=== PATIENT | male | born 1950 | race Hispanic/Latino ===

== ENCOUNTER 2024-05-15 11:58 | Emergency (ER) | payer MEDICARE, SELFPAY ==
[2024-05-15 14:08] LABS: #Basophils 0.04 10x3/uL (0.0-0.2); %Basophils 0.7 % (0.0-1.0); %Eosinophils 6.4 % (0.0-10.0); %Lymphocytes 37.3 % (21.0-51.0); %Monocytes 9.2 % (0.0-10.0); %Neutrophils 45.7 % (42.0-75.0); Hematocrit 43.6 % (42.0-52.0); Hemoglobin 14.2 g/dL (14.0-18.0); Mean Corpuscular HGB CONC 32.6 g/dL (32.0-36.0); Mean Platelet Volume 8.7 fL (7.4-10.4); Platelet Count 350 10x3/uL (130-400); RBC Distribution Width 13.1 % (11.5-14.5)
[2024-05-15 14:32] LABS: ALT (SGPT) 21 U/L (8-55); AST (SGOT) 23 U/L (5-34); Albumin 3.6 g/dL (3.4-4.8); Alkaline Phosphatase 64 U/L (40-110); Anion Gap 11 mmol/L (10-20); BUN (Urea Nitrogen) 16 mg/dL (8.4-25.7); Bilirubin, Total 0.9 mg/dL (0.2-1.2); Calc. Creatinine Clearance 0 mL/min (70-130); Calcium 9.9 mg/dL (7.8-10.44); Carbon Dioxide 27 mmol/L (23-31); Chloride 102 mmol/L (98-107); Estimated GFR 92; Globulin 3.4 g/dL (2.4-3.5); Glucose 113 mg/dL (83-110); Potassium 4.4 mmol/L (3.5-5.1); Sodium 136 mmol/L (136-145)
[2024-05-15 14:34] LABS: Troponin I Less than 0.010 ng/mL (< 0.028)
[2024-05-15] MEDS ORDERED: hydrALAZINE 20 MG/ML VIAL ONE (16:17)
== END 2024-05-15 17:35 | disposition home or self-care (01) ==
LOC: ERS 11:58
DX: I10 Essential (primary) hypertension (principal); Z55.6 Problems related to health literacy
CPT/HCPCS: 71045; 80053; 84484; 85025; 93005; 96374; 99284; J0360; 36415

== ENCOUNTER 2025-04-23 11:15 | Outpatient (CLI) | payer MEDICARE ==
[2025-04-23 13:22] LABS: #Basophils 0.04 10x3/uL (0.0-0.2); #Eosinophils 0.29 10x3/uL (0.0-0.7); #Monocytes 0.81 10x3/uL (0.11-0.59); #Neutrophils 4.26 10x3/uL (1.40-6.50); %Basophils 0.5 % (0.0-1.0); %Eosinophils 3.7 % (0.0-10.0); %Lymphocytes 30.8 % (21.0-51.0); %Monocytes 10.3 % (0.0-10.0); %Neutrophils 54.2 % (42.0-75.0); Hematocrit 40.5 % (42.0-52.0); Hemoglobin 13.2 g/dL (14.0-18.0); Mean Corpuscular Hemoglobin 28.6 pg (27.0-31.0); Mean Corpuscular Volume 87.7 fL (78.0-98.0); Platelet Count 289 10x3/uL (130-400); Red Blood Cell (RBC) Count 4.62 mill/uL (4.70-6.10); White Blood Cell (WBC) Count 7.86 10x3/uL (4.8-10.8)
[2025-04-23 13:35] LABS: INR-International Normal Ratio 1.0; Prothrombin Time 12.9 sec (12.0-14.7)
[2025-04-23 13:40] LABS: Anion Gap 15 mmol/L (10-20); BUN (Urea Nitrogen) 21 mg/dL (8.4-25.7); Calc. Creatinine Clearance 0 mL/min (70-130); Calcium 9.3 mg/dL (7.8-10.44); Carbon Dioxide 25 mmol/L (23-31); Chloride 106 mmol/L (98-107); Glucose 98 mg/dL (83-110); Potassium 4.1 mmol/L (3.5-5.1); Sodium 142 mmol/L (136-145)
== END 2025-04-23 11:16 | disposition home or self-care (01) ==
LOC: LABBT 11:15
PROVIDERS: ATTEND Orthopaedic Surgery
DX: Z01.818 Encounter for other preprocedural examination (principal); M17.11 Unilateral primary osteoarthritis, right knee
CPT/HCPCS: 80048; 85025; 85610; 87081; 93005; 93010

== ENCOUNTER 2025-04-23 12:07 | Outpatient (CLI) | payer MEDICARE | END 2025-04-23 12:08 | disposition home or self-care (01) | LOC: CT 12:07 | PROVIDERS: ATTEND Orthopaedic Surgery | DX: Z01.818 Encounter for other preprocedural examination (principal); M17.11 Unilateral primary osteoarthritis, right knee; N40.0 Benign prostatic hyperplasia without lower urinary tract symptoms; M25.461 Effusion, right knee; I70.90 Unspecified atherosclerosis | CPT/HCPCS: 80048; 85025; 85610; 87081; 93005; 93010 ==

== ENCOUNTER 2025-04-30 06:44 | Observation (INO) | payer MEDICARE ==
[2025-04-23 11:30] VITALS: BMI 34.1
[2025-04-30] MEDS ORDERED: Bupivacaine 0.25% HCL 30 ML VIAL ONE (06:51)
[2025-04-30] MEDS ORDERED: fentaNYL PF 100 MCG/2 ML SYRINGE ONE ×3 (06:51→09:54)
[2025-04-30] MEDS ORDERED: Tranexamic Acid 1,000 MG/10 ML VIAL ONE (07:27)
[2025-04-30] MEDS ORDERED: Vancomycin HCl 1.5 GM VIAL ONE (07:28)
[2025-04-30] MEDS ORDERED: CEFAZOLIN 2 GM VIAL ONE (07:32)
[2025-04-30] MEDS ORDERED: PROPOFOL 20 ML ONE (07:43)
[2025-04-30] MEDS ORDERED: Ropivacaine 0.5% HCl/PF (150 MG/30 ML VIAL) ONE (07:55)
[2025-04-30] MEDS ORDERED: Lidocaine 1% (PF) 30 ML VIAL ONE (07:55)
[2025-04-30] MEDS ORDERED: HYDROcodone/Acetaminophen 10/325 mg Tablet PO PRN (08:00)
[2025-04-30] MEDS ORDERED: Ondansetron PF 4 MG/2 ML Vial IVP PRN ×2 (08:00→10:12)
[2025-04-30] MEDS ORDERED: Ropivacaine 0.2% 550 ML 550 ML NERVE BLCK SCH (08:00)
[2025-04-30] MEDS ORDERED: diphenhydrAMINE 25 MG CAP PO PRN (10:12)
[2025-04-30] MEDS ORDERED: Acetaminophen 325 MG TAB PO PRN (10:12)
[2025-04-30] MEDS ORDERED: Ketorolac Tromethamine 30 MG (1 mL) VIAL ONE (10:19)
[2025-04-30] MEDS: Ketorolac Tromethamine 30 MG (1 mL) VIAL IVP SCH (10:21)
[2025-04-30] MEDS ORDERED: HYDROcodone/Acetaminophen 10/325 mg Tablet ONE (10:37)
[2025-04-30] MEDS: HYDROcodone/Acetaminophen 10/325 mg Tablet PO PRN (10:38)
[2025-04-30] MEDS: Aspirin 81 mg Enteric Coated Tablet PO SCH (21:22)
[2025-05-01 04:58] LABS: Hematocrit 34.1 % (42.0-52.0); Hemoglobin 11.1 g/dL (14.0-18.0); Mean Corpuscular Hemoglobin 28.6 pg (27.0-31.0); Mean Corpuscular Volume 87.9 fL (78.0-98.0); Platelet Count 205 10x3/uL (130-400); Red Blood Cell (RBC) Count 3.88 mill/uL (4.70-6.10); White Blood Cell (WBC) Count 8.94 10x3/uL (4.8-10.8)
[2025-05-01] MEDS: Senokot S 8.6-50 MG TAB PO SCH (08:04)
[2025-05-01] MEDS: Spironolactone 25 MG TAB PO SCH (08:04)
[2025-05-01] MEDS: Valsartan 80 MG TAB PO SCH (08:04)
[2025-05-01] MEDS: Ferrous Gluconate 324 MG TAB PO SCH (08:04)
[2025-05-01] MEDS: Multivitamin W/ Minerals 1 TAB PO SCH (08:05)
[2025-05-01 14:47] VITALS: BP 170/80; TEMP 98.2
== END 2025-05-01 14:55 | disposition home or self-care (01) ==
LOC: SDC 06:44 → SURG B 11:16 → SDC 13:28 → SURG B 13:28
PROVIDERS: ADMIT Orthopaedic Surgery; ATTEND Orthopaedic Surgery
PROC: 0SRC0JZ Replacement of Right Knee Joint with Synthetic Substitute, Open Approach (ICD-10-PCS; principal; 2025-04-30)
PROC: 3E0T3BZ Introduction of Anesthetic Agent into Peripheral Nerves and Plexi, Percutaneous Approach (ICD-10-PCS; 2025-04-30)
DX: M17.11 Unilateral primary osteoarthritis, right knee (principal); Z90.49 Acquired absence of other specified parts of digestive tract
CPT/HCPCS: 0055T; 27447; 64448; 36415; 85027; A4306; C1713; C1776; C1889; J0169; J0665; J1100; J1885; J2250; J2704; J2795; J3010; J7030

== ENCOUNTER 2025-08-19 08:46 | Outpatient (CLI) | payer MEDICARE ==
[2025-08-19 09:55] LABS: #Basophils 0.04 10x3/uL (0.0-0.2); #Eosinophils 0.25 10x3/uL (0.0-0.7); #Monocytes 0.62 10x3/uL (0.11-0.59); #Neutrophils 3.72 10x3/uL (1.40-6.50); %Basophils 0.6 % (0.0-1.0); %Eosinophils 3.5 % (0.0-10.0); %Lymphocytes 33.9 % (21.0-51.0); %Monocytes 8.8 % (0.0-10.0); %Neutrophils 52.8 % (42.0-75.0); Hematocrit 40.6 % (42.0-52.0); Hemoglobin 13.0 g/dL (14.0-18.0); Mean Corpuscular Hemoglobin 28.0 pg (27.0-31.0); Mean Corpuscular Volume 87.3 fL (78.0-98.0); Platelet Count 288 10x3/uL (130-400); Red Blood Cell (RBC) Count 4.65 mill/uL (4.70-6.10); White Blood Cell (WBC) Count 7.05 10x3/uL (4.8-10.8)
[2025-08-19 10:09] LABS: INR-International Normal Ratio 1.0; Prothrombin Time 13.0 sec (12.0-14.7)
[2025-08-19 10:34] LABS: ALT (SGPT) 12 U/L (Less than 45); AST (SGOT) 19 U/L (11-34); Albumin 3.8 g/dL (3.1-4.5); Alkaline Phosphatase 79 U/L (40-110); Anion Gap 13 mmol/L (10-20); BUN (Urea Nitrogen) 15 mg/dL (8.4-25.7); Bilirubin, Total 0.9 mg/dL (0.3-1.2); Calc. Creatinine Clearance 0 mL/min (70-130); Calcium 9.3 mg/dL (7.8-10.44); Carbon Dioxide 26 mmol/L (23-31); Chloride 105 mmol/L (98-107); Globulin 3.0 g/dL (2.4-3.5); Glucose 109 mg/dL (83-110); Potassium 4.1 mmol/L (3.5-5.1); Sodium 140 mmol/L (136-145)
== END 2025-08-19 08:47 | disposition home or self-care (01) ==
LOC: LABBT 08:46
PROVIDERS: ATTEND Orthopaedic Surgery
DX: Z01.818 Encounter for other preprocedural examination (principal); M17.12 Unilateral primary osteoarthritis, left knee
CPT/HCPCS: 80053; 85025; 85610; 87081; 93005; 93010